=== PATIENT | female | born 2005 | race Two or more races ===

== ENCOUNTER 2025-05-14 12:36 | Emergency (ER) | payer OTHER ==
[~2025-05-14] VITALS: Ht 154.9 cm; Wt 49.9 kg
[2025-05-14] MEDS ORDERED: FOLIC ACID1 MG PO (13:09)
[2025-05-14] MEDS ORDERED: KETOROLAC TROMETHAMINE 30 MG VIAL IM ONE (14:00)
[2025-05-14 14:26] LABS: BASO % 0.7 % (0.1-1.2); EOS # 0.07 (0.04-0.54); EOS % 1.0 % (0.7-7.0); LYMPH # 2.57 (1.18-3.74); LYMPH % 38.4 % (19.3-53.1); MEAN PLATELET VOLUME 9.60 fl (9.4-12.4); MONO # 0.52 (0.24-0.82); MONO % 7.8 % (4.7-12.5); NEUT # 3.47 (1.56-6.13); NEUT % 51.8 % (34.0-71.1); RED CELL DISTRIBUTION WIDTH 21.7 % (11.6-14.4)
[2025-05-14 14:44] LABS: COVID-19 AG NEGATIVE (NEGATIVE)
[2025-05-14 14:53] LABS: ALT/SGPT 13.0 U/L (12-78); AST/SGOT 14.0 U/L (15-37); BILIRUBIN TOTAL 0.45 mg/dL (0.3-1.2); BUN CREA RATIO 13.0 (7.0-25.0); CREATININE SERUM 0.75 mg/dL (0.55-1.02); GFR 99.55; GLOBULINA 3.4 G/DL (2.4-3.5); GLUCOSE FASTING 106.0 mg/dL (65-100); OSMOLALITY SERUM 277.0 MOSM/KG (275-295)
== END 2025-05-14 18:04 | disposition home or self-care (01) ==
LOC: ER 12:36 → EMR PED 12:36
PROVIDERS: Emergency Medicine Pediatric Emergency Medicine
DX: N94.6 Dysmenorrhea, unspecified (principal); N83.202 Unspecified ovarian cyst, left side; D64.9 Anemia, unspecified; Z20.822 Contact with and (suspected) exposure to COVID-19